=== PATIENT | male | born 1990 | race Caucasian/White ===

== ENCOUNTER 2023-06-27 12:30 | Emergency (ER) | payer MEDICAID ==
[~2023-06-27] VITALS: Ht 167.6 cm; Wt 63.5 kg
[2023-06-27] MEDS ORDERED: KETOROLAC TROMETHAMINE 30 MG INJ ONE (13:51)
[2023-06-27 13:59] LABS: BASOPHILS % (AUTO) 0.3 % (0.0-2.0); EOSINOPHILS % (AUTO) 0.2 % (0.0-7.0); HEMOGLOBIN 13.8 g/dL (12.5-16.3); LYMPHOCYTES # (AUTO) 1.6 K/uL (0.8-4.8); LYMPHOCYTES % (AUTO) 15.4 % (20.5-51.5); MEAN CORPUSCULAR HGB CONC 35 g/dL (32.5-36.3); MEAN CORPUSCULAR VOLUME 95.5 fL (73.0-96.2); MONOCYTES # (AUTO) 0.8 K/uL (0.1-1.30); MONOCYTES % (AUTO) 7.5 % (0.0-11.0); NEUTROPHILS # (AUTO) 7.9 K/uL (1.8-8.9); NEUTROPHILS % (AUTO) 76.6 % (38.5-71.5); PLATELET COUNT (AUTO) 217 K/uL (152-348); RED BLOOD CELL COUNT(AUTO) 4.19 MIL/uL (4.06-5.63); RED CELL DISTRIBUTION WIDTH 12.3 % (12.1-16.2); WHITE BLOOD COUNT (AUTO) 10.3 K/uL (3.6-10.2)
[2023-06-27] MEDS: IV NORMAL SALINE 1000 ML BAG IV ONE (14:01)
[2023-06-27] MEDS: KETOROLAC TROMETHAMINE 15 MG INJ IVP ONE (14:01)
[2023-06-27 14:02] LABS: CALCIUM 9.8 mg/dL (8.5-10.1); CREATININE 1.2 mg/dL (0.6-1.3); POTASSIUM 4.5 mmol/L (3.5-5.1)
[2023-06-27 14:07] LABS: ALBUMIN 4.4 g/dL (3.4-5.0); BILIRUBIN,DIRECT 0.1 mg/dL (0.0-0.2); BILIRUBIN,TOTAL 0.5 mg/dL (0.2-1.0); TOTAL PROTEIN, SERUM 7.9 g/dL (6.4-8.2)
[2023-06-27] MEDS ORDERED: IOHEXOL 300MG/ML 100 ML INFUS..BTL ONE (14:24)
[2023-06-27] MEDS ORDERED: IV NORMAL SALINE 250 ML IV ONE (14:24)
[2023-06-27] MEDS ORDERED: SWABABLE VALVE TRANSFER SET EA MC ONE (14:24)
[2023-06-27] MEDS ORDERED: ONDANSETRON 4 MG/2 ML VIAL ONE (14:37)
[2023-06-27] MEDS ORDERED: MORPHINE SULFATE 4 MG/1 ML DISP.SYRIN ONE (14:38)
[2023-06-27] MEDS: ONDANSETRON 4 MG/2 ML VIAL IV ONE (14:42)
[2023-06-27] MEDS: MORPHINE SULFATE 4 MG/1 ML DISP.SYRIN IV ONE (14:42)
[2023-06-27 15:47] LABS: *BILIRUBIN,URIN NEGATIVE (NEGATIVE); *BLOOD, URINE 2+ (NEGATIVE); *CLARITY,URINE CLEAR (CLEAR); *COLOR,URINE YELLOW (YELLOW); *KETONES,URINE NEGATIVE (NEGATIVE); *PROTEIN,URINE NEGATIVE (NEGATIVE); *UROBILINOGEN,URINE 0.2 E.U./dl (NORMAL); LEUKOCYTE ESTERASE ,URINE NEGATIVE (NEGATIVE); NITRITE, URINE NEGATIVE (NEGATIVE); PH,URINE 5.5 (5.0-8.0); UGLUCOSE NEGATIVE (NEGATIVE)
[2023-06-27 16:01] LABS: BACTERIA,URINE MODERATE /HPF (NONE SEEN); CALCIUM OXALATE CRYSTALS,UR FEW /HPF (NONE SEEN); URINE AMORPHOUS URATE MANY /HPF; WBC,URINE NONE SEEN /HPF (0-3)
[2023-06-27] MEDS ORDERED: OXYCODONE/APAP 5-325 MG TABLET ONE (16:02)
[2023-06-27] MEDS: OXYCODONE/APAP 5-325 MG TABLET PO ONE (16:03)
[2023-06-27 16:05] VITALS: O2SAT 100
[2023-06-27] MEDS ORDERED: OXYC-128 PO ×2 (16:05→16:07)
[2023-06-27] MEDS ORDERED: CEPH750C9 PO (16:07)
[2023-06-27] MEDS ORDERED: CEPH500C2 PO (17:03)
== END 2023-06-27 16:12 | disposition home or self-care (01) ==
LOC: ER 12:36
DX: N20.0 Calculus of kidney (principal); Z79.899 Other long term (current) drug therapy
CPT/HCPCS: 99285; 74177; 96374; 96375; 96361; 80076; 80048; 81001; 83690; 85025; 36415; 74018; 87086; J1885; J2405; Q9967; J2270; J7040; A4606; A4663